=== PATIENT | female | born 1990 | race African-American/Black ===

== ENCOUNTER 2017-03-09 00:07 | Observation (INO) ==
[2017-03-09] MEDS ORDERED: SODIUM CHLORIDE 0.9% 1,000 ML IV STA (01:02)
[2017-03-09] MEDS ORDERED: HYDROmorphone 2 MG/1 ML VIAL IV STA (01:02)
[2017-03-09] MEDS ORDERED: KETOROLAC 30 MG/1 ML VIAL IV STA (01:02)
[2017-03-09] MEDS ORDERED: ONDANSETRON 4 MG/2 ML VIAL IV STA (01:02)
--- NOTE | 2017-03-09 01:07 | Emergency Department Note ---
Arrival - Arrival ED Nursing Triage Note: patient c/o pain that she cannot describe in the left abd with n/v Mode of Arrival: Ambulatory - History of Present Illness Date of Last Menstrual Period: hyster <Charbel Azar - Last Filed: 03/09/17 01:05> <Pascual Ryan - Last Filed: 03/09/17 05:01> - Arrival Chief Complaint: Abdominal / Flank Pain Stated Complaint: pain in abd Time Seen by Provider: 03/09/17 00:56 - History of Present Illness HPI Narrative: History as above. The patient complains of severe left flank pain since yesterday. She describes the pain as "a hurt" which is better when she presses on it. The pain is constant. She denies any fever. She had nausea and vomited several times. The patient had a hysterectomy in the past. She denies any dysuria. The rest review of systems was reviewed and it was negative. (Charbel Azar) Allergies/Adverse Reactions: Allergies Allergy/AdvReac Type Severity Reaction Status Date / Time No Known Allergies Allergy Verified 12/26/16 15:29 Review of System <Charbel Azar - Last Filed: 03/09/17 01:05> <Pascual Ryan - Last Filed: 03/09/17 05:01> - Review of System Review of Systems: I reviewed the rest review of systems unable as negative. (Charbel Azar) Medical,Surgical,& Family Hx - Medical History Psychological: History of: Depression - Surgical History Reproductive Surgeries: Surgical HX of;: Hysterectomy - Social History Smoking Status: Current every day smoker Frequency of Alcohol Use: None Type of Drug Use: None <Charbel Azar - Last Filed: 03/09/17 01:05> Exam <Charbel Azar - Last Filed: 03/09/17 01:05> <Pascual Ryan - Last Filed: 03/09/17 05:01> Physical Examination: The patient is in severe distress HEENT: [Anicteric], [normocephalic], [extraocular muscles intact], [pupils equal round and reactive to light] Neck: [Supple], [no JVD], [trachea in the midline] CV: Regular rate and rhythm, no murmurs or gallops Lungs: [Clear to auscultation and percussion], [bilateral breath sounds] Abdomen:[Nondistended], [mild tenderness in the left lower quadrant, no guarding or rebound] Extremities:[ No edema], [clubbing or cyanosis] Neurological exam: [Alert and oriented 3], [cranial nerves II through XII grossly intact], [nonfocal] Skin: [Warm and dry], [no rash] (Charbel Azar) Vital Signs: Vital Signs Temperature 96.9 F L 03/09/17 00:08 Pulse Rate 88 03/09/17 00:08 Respiratory Rate 20 03/09/17 00:08 Blood Pressure 170/115 03/09/17 00:08 O2 Sat by Pulse Oximetry 97 03/09/17 00:08 Course <Charbel Azar - Last Filed: 03/09/17 01:05> - Consultations Time: 05:00 <Pascual Ryan - Last Filed: 03/09/17 05:01> - Consultations Consultation #1: Dr. Dickson was notified she will admit patient for ovarian torsion (Pascual Ryan) Results - Labs CBC & BMP: 03/09/17 00:38 03/09/17 00:38 - Diagnostic Findings Procedure: Ultrasound: image reviewed by me, report reviewed by me (Possible ovarian torsion) <Pascual Ryan - Last Filed: 03/09/17 05:01> Disposition <Charbel Azar - Last Filed: 03/09/17 01:05> Case discussed with: patient, patient's family Time of Disposition: 05:01 <Pascual Ryan - Last Filed: 03/09/17 05:01> Clinical Impression: Abdominal pain, Pelvic pain, Torsion of left ovary and ovarian pedicle Disposition: Still a Patient Condition: Stable
[2017-03-09 01:13] LABS: Basophils # 0.1 10*3/uL (0.0-0.2); Basophils % 0.5 % (0.0-0.8); Eosinophils # 0.1 10*3/uL (0.0-0.87); Eosinophils % 0.7 % (0.00-10.9); Hematocrit 40.3 VOL% (35.7-47.0); Immature Granulocytes % 0.2 %; Immature Granulocytes Absolute 0.02 #; Lymphocytes # 4.7 10*3/uL (1.4-4.0); Lymphocytes % 42.1 % (21.3-54.2); Mean Corpuscular HGB Conc 34.7 GM/DL (32-36); Mean Corpuscular Hemoglobin 33 PG (27-34); Mean Corpuscular Volume 93.5 FL (87-102); Mean Platelet Volume 12.1 FL (9.6-12.0); Monocytes % 8.6 % (1.7-12.7); Neutrophils # 5.3 10*3/uL (1.4-7.4); Neutrophils % 47.9 % (38.7-73.9); Platelet Count 195 T/CUMM (130-400); Red Blood Count 4.31 MC/CUMM (3.8-5.5); Red Cell Distribution Width 12.8 % (9.3-17.3); White Blood Count 11.1 T/CUMM (4-12)
[2017-03-09] MEDS ORDERED: ONDANSETRON 4 MG/2 ML VIAL ONE ×2 (01:13→11:48)
[2017-03-09] MEDS ORDERED: HYDROmorphone 2 MG/1 ML VIAL ONE (01:13)
[2017-03-09] MEDS ORDERED: KETOROLAC 30 MG/1 ML VIAL ONE ×2 (01:13→11:48)
[2017-03-09 02:02] LABS: Alanine Aminotransferase 21 U/L (13-56); Alkaline Phosphatase 95 U/L (45-117); Amylase 59 U/L (25-115); Aspartate Amino Transferase 14 U/L (0-37); Bilirubin,Total < 0.39 MG/DL (0.2-1.0); Blood Urea Nitrogen 6 MG/DL (7-18); Calcium 9.2 MG/DL (8.5-10.1); Glucose 93 MG/DL (74-106); Osmolality,Calculated 276.4 MOS/KG (273-304); Potassium 3.8 MMOL/L (3.5-5.1); Sodium 140 MMOL/L (136-145); Total Protein 7.4 G/DL (6.4-8.3)
[2017-03-09] MEDS ORDERED: methylPREDNISolone SOD SUC 125 MG/2 ML VIAL ONE (02:02)
[2017-03-09] MEDS ORDERED: diphenhydrAMINE 50 MG/1 ML VIAL ONE (02:02)
[2017-03-09] MEDS ORDERED: FAMOTIDINE 20 MG/2 ML VIAL IV ONE (02:03)
[2017-03-09] MEDS ORDERED: methylPREDNISolone SOD SUC 125 MG/2 ML VIAL IV STA (02:10)
[2017-03-09] MEDS ORDERED: diphenhydrAMINE 50 MG/1 ML VIAL IV STA (02:10)
[2017-03-09] MEDS ORDERED: FAMOTIDINE 20 MG/2 ML VIAL IV STA (02:10)
[2017-03-09 02:11] LABS: Apearance,Urine CLEAR (Clear); Bilirubin,Urine Negative (Negative); Blood, Urine Negative (Negative); Glucose,Urine (UA) Negative (Negative); Ketones,Urine Negative (Negative); Mucus,Urine Occasional /LPF (Occasional); Nitrite,Urine Negative (Negative); Protein,Urine Negative; Squamous Epithelial Cell,Urine Occasional /HPF (0-10); Urine Color Straw (Yellow); Urine Specific Gravity 1.011 (1.001-1.035); Urine Urobilinogen < 2.0 EU/DL (0.2-1.0)
[2017-03-09] MEDS ORDERED: ceFAZolin 2,000 MG in SODIUM CHLORIDE 0.9% 100 ML IV STA (05:01)
[2017-03-09] MEDS ORDERED: ceFAZolin 1,000 MG VIAL ONE (05:09)
[2017-03-09] MEDS ORDERED: SODIUM CHLORIDE 0.9% 100 ML IV ONE (05:09)
[2017-03-09] MEDS ORDERED: SODIUM CHLORIDE 0.9% 1,000 ML IV SCH (06:37)
[2017-03-09] MEDS ORDERED: ACETAMINOPHEN 325 MG TABLET PO PRN ×2 (06:37→11:01)
[2017-03-09] MEDS ORDERED: ONDANSETRON 4 MG/2 ML VIAL IV PRN ×2 (06:37→11:01)
[2017-03-09] MEDS ORDERED: IBUPROFEN 800 MG TABLET PO PRN ×2 (06:37→11:01)
[2017-03-09] MEDS ORDERED: MAGNESIUM HYDROXIDE SUSP 30 ML UDCUP PO PRN ×2 (06:37→11:01)
[2017-03-09] MEDS ORDERED: MORPHINE 2 MG/1 ML SYRINGE IV PRN (06:37)
[2017-03-09] MEDS ORDERED: MEPERIDINE 25 MG/1 ML VIAL IV ONE (06:45)
[2017-03-09] MEDS ORDERED: ONDANSETRON 4 MG/2 ML VIAL IV ONE (06:46)
--- NOTE | 2017-03-09 06:54 | OB/GYN History & Physical ---
History of Present Illness Chief complaint: LLQ pain since 03/06/17. History of present illness: Ms. Marc is a 26 year old female presented to ER about 11 pm with LLQ since Sunday, worst pain she's ever had. Took Sunday off work with some improvement with supine position most of the day. 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 Evaluation with evidence of torsed left ovary with no flow to this area and 5 cm complex cyst. Pt is S/P Emergency Hysterectomy at [facility] 05/2016 due to hemorrhage at C/S which was done at 37 wks for placenta previa. Pt received 4 units pRBCs at that time. BRCA of Robotic Oophorectomy, surgery as indicated, possible open discussed with pt in great detail. She voices understanding and wishes to proceed. Allergies Allergy/AdvReac Type Severity Reaction Status Date / Time Hydromorphone [From Dilaudid] Allergy RASH Verified 03/09/17 06:45 Medical,Surgical,& Family Hx - Medical History Psychological: History of: Depression - Surgical History Reproductive Surgeries: Surgical HX of;: Hysterectomy - Social History Smoking Status: Current every day smoker Frequency of Alcohol Use: None Type of Drug Use: None Exam [employer] - Constitutional Vitals: Vital Signs Temp Pulse Resp BP Pulse Ox 03/09/17 00:08 96.9 F L 88 20 170/115 97 General appearance: mild distress, over weight - Head Head exam: Present: normal inspection, normocephalic - Eye Eye exam: Present: EOMI - Respiratory Respiratory exam: Present: clear to auscultation bilaterally - Cardiovascular Cardiovascular exam: Present: regular rate and rhythm - GI/Abdominal GI/Abdominal exam: Present: tenderness, soft - Extremities Exam Extremities exam: Present: normal inspection - Neurological Exam Neurological exam: Present: alert, oriented X3 - Psychiatric Psychiatric exam: Present: normal affect, normal mood - Skin Skin exam: Present: normal color, warm Assessment and Plan (1) Torsion of ovarian pedicle Status: Acute Assessment and plan: Robotic oophorectomy, surgery as indicated, possible open planned. BRCA discussed with pt in great detail. She voices understanding and wishes to proceed. Current Visit: Yes (2) Left lower quadrant pain Status: Acute Current Visit: Yes Results - Labs CBC & BMP: 03/09/17 00:38 03/09/17 00:38 Lab Results: I have reviewed the past 24 hour labs
[2017-03-09] MEDS ORDERED: MEPERIDINE 25 MG/1 ML VIAL ONE ×2 (06:55→13:47)
--- NOTE | 2017-03-09 06:59 | EKG Report ---
Stationary ECG Study [facility] Test Date: 03/09/2017 6:59:08 AM Pat Name: GALDINO ZENDEJAS Department: Room: 155 Gender: F Maintenance Aide: AZUL : 1990 Requested by: Pascual Kwan Order Number: [id number] Reading MD: NATALEE NARVAEZ Intervals [place] Rate: 67 P: 48 NE: 173 QRS: 86 QRSD: 98 T: 55 QT: 414 QTc: 429 Interpretive Statements SINUS RHYTHM Electronically Signed On 03-09-17 12:34:16 CDT by NATALEE NARVAEZ [email or web address]
[2017-03-09] MEDS ORDERED: LACTATED RINGERS 1,000 ML IV SCH ×2 (07:00→11:30)
--- NOTE | 2017-03-09 07:40 | CT Report ---
CT abdomen pelvis Indication: Abdominal pain Comparison: None available Technique: Axial CT imaging of the abdomen and pelvis is performed without contrast. Findings: Cardiac and lung bases are within normal limits CT abdomen: The liver spleen pancreas and adrenal glands are normal in size and density. No evidence of focal lesion is demonstrated in these solid organs. Kidneys are normal in size and density. No evidence of hydronephrosis or nephrolithiasis is seen. The bowel caliber is normal and no wall thickening or adjacent inflammatory change is seen. No evidence of free fluid or free air is present. Appendix appears normal. CT pelvis: The bowel and bladder appear within normal limits. The uterus and ovaries not clearly seen. In the left side of the pelvis there is a 4.59 x 4.9 cm area of increased density. Impression: Left pelvic area of increased density, could indicate ovarian mass or cystic lesion. Ultrasound may be useful for further evaluation. This CT exam was performed using one or more the following dose reduction techniques: Automated exposure control, adjustment of the MA and/or KV according to patient size, or use of iterative reconstruction technique. PROCEDURE INTERPRETED AT [facility] DEPARTMENT OF RADIOLOGY Final Report Signed by: Dr. Arnaldo Álvarez
--- NOTE | 2017-03-09 07:52 | Ultrasound Report ---
Pelvic ultrasound Indication: Pelvic pain Findings: The uterus is been removed. The right ovary length is 3.2 cm. Left ovary is enlarged with absence of Doppler flow. The patient was tender over this area. The left ovary length is 5.4 cm. No other focal abnormality seen. No free fluid is identified Impression: Enlarged left ovary without Doppler flow, likely torsion. PROCEDURE INTERPRETED AT [facility] DEPARTMENT OF RADIOLOGY Final Report Signed by: Dr. Arnaldo lÁvarez
[2017-03-09] MEDS ORDERED: PANTOPRAZOLE 40 MG VIAL IV SCH (09:00)
[2017-03-09] MEDS ORDERED: TISSUE ADHESIVE 1 EACH APPLICATOR TOP ONE (10:27)
--- NOTE | 2017-03-09 10:58 | Operative Note ---
Date of procedure: 03/09/17 Pre-op diagnosis: Left ovarian torsion Post-op diagnosis: same (+ path pending) Procedure: Robotic Extensive Lysis of Adhesions; Left Partial Salpingo-oophorectomy After informed consent was obtained the patient was taken to the OR where she is placed in supine position. Gen. LMA anesthesia was then administered by members anesthesia Department. The patient was then sterilely prepped and draped in usual customary fashion. A Holliday catheter had been placed to bedside drainage. An 8 mm incision was made in the supraumbilical region. Veress needle was passed through the incision without difficulty. Placement was assured by the hanging drop technique. Approximately 3 L of carbon dioxide gas was used to insufflate the abdomen. The Veress needle was then removed. The 8 mm trocar and sheath were placed without difficulty. Laparoscope was placed and pelvic contents were visualized. Incisions were made in the lateral areas of the upper abdomen. 8 mm trochars were passed through these incisions under direct visualization without difficulty. A 12 mm port was passed under direct visualization in the left upper quadrant. The da Harmeet was then attached to the ports in the typical fashion. I then turned my attention to the da Harmeet console. The uterus was absent consistent with pt's surgical history. There were omental adhesions covering the pelvis. The left ovary was carefully dissected out of the culdesac with tissue planes easily defined after initial careful dissection. Once the left adnexa was mobilized it was found to be markedly enlarged. The ovarian surface was unintentionally disrupted during manipulation and a large amount of dark reddish brown clots were suctioned from the ovary. The IP ligament was identified, cauterized and cut with the Vessel Sealer. The ovary was carefully dissected off the left pelvic side wall. As it was more exposed the fimbriated end of the Fallopian tube was noted but no other tubal structures were identified. Despite careful dissection there may be some remnants of ovarian tissue left due to the extensive adhesions encountered. The right ovary was equally obscured with pelvic adhesions. It was dissected out and no abnormalities were noted of the right adnexa. The left tube and ovary were then brought out of the abdomen with the Endobag and the specimen was sent to pathology. Irrigation was performed. No active bleeding was noted of the dissection site but due to oozing of the surfaces from adhesiolysis I decided to use Tisseal to achieve complete hemostasis. Attention was drawn again to the abdomen and the ports were removed. The wounds were closed with interrupted stitches of 4 Vicryl with good approximation and hemostasis. The sites were cleansed and dressed in the customary fashion. The patient tolerated the procedure well and was transferred to recovery in stable condition. (((((The left tube and ovary were very mobile with no specific pathology identified. There was a red lesion and a brown lesion of left tube suggesting possible endometriosis. No other suspicious lesions were identified in the pelvis. Careful inspection of the anterior posterior cul-de-sacs was without evidence of pathology. There was noted to be a large peritoneal cyst in the cul de sac. This was removed and discarded. The upper abdomen appeared to be without evidence pathology. The cecum and appendix appeared healthy . A third incision was made through another old cicatrix in the left lower quadrant and a 12 mm trocar was passed under direct visualization. The bipolar cautery instrument was used to cauterize then cut the left IP ligament as close to the ovary as possible. The endobag was then used to bring the ovary and tube out of the abdomen. This tissue was sent to pathology. The endoclose was used to place 0-vicryl suture through fascia on each side of the 12 mm incision. This was done under direct visualization with good fascial closure assured.))))))) Irrigation was performed. The instruments were then removed, the gas was allowed to escape and the incisions were repaired with interrupted stitches of 4 -0 Vicryl suture with good approximation and hemostasis. A running subcuticular stitch of 4-0 vicryl was placed in the 12 mm site. The wounds were sterilely cleansed and dressed. Pt tolerated the procedure well and was transferred to recovery in stable condition. Anesthesia: GETA Surgeon / Physician: Kristen Dickson Estimated blood loss: other (25 mL) Specimens: other (Left ovary and portion of tube sent to path) Condition: stable Disposition: PACU Results - Labs CBC & BMP: 03/10/17 05:02 03/10/17 05:02 Discharge Plan - Discharge Data Disposition: Disch To Home/Self Care - Discharge Medications New Ibuprofen Tab [Motrin Tab] 800 mg PO Q8H PRN #30 tablet PRN Reason: Pain Moderate (4-7) oxyCODONE/ACETAMINOPHEN 5-325 [Percocet 5-325] 1 tablet PO Q4H PRN #30 tablet PRN Reason: Pain Severe (8-10) No Action Methyldopa [Aldomet] 250 mg PO TID valACYclovir [Valtrex] 500 mg PO BID hydroCHLOROthiazide [Hydrochlorothiazide] 25 mg PO DAILY Fluoxetine HCl [Prozac] 10 mg PO DAILY Oxybutynin Xl [Ditropan Xl] 10 mg PO DAILY Ibuprofen Tab [Motrin Tab] 800 mg PO TID - Follow Up or Referral Follow Up: Kristen Dickson DO [Physician] - 1 Week (Appt with Dr. Dickson Mar 14 @1pm at her office. ) - Forms/Instructions Instructions: Ibuprofen (By mouth), Oxycodone/Acetaminophen (By mouth), Surgical Site Infections (GEN), Laparoscopic Oophorectomy (DC)
[2017-03-09] MEDS ORDERED: BISACODYL 10 MG SUPP RECTAL PRN (11:01)
[2017-03-09] MEDS ORDERED: BENZOCAINE/MENTHOL LOZENGE 18/BOX PO PRN (11:01)
[2017-03-09] MEDS ORDERED: DOCUSATE SODIUM 100 MG CAPSULE PO PRN (11:01)
--- NOTE | 2017-03-09 11:01 | Discharge Summary ---
Hospital Course - Hospital Course Hospital Course: Pt underwent Robotic extensive lysis of adhesions, Left partial salpingo- oophorectomy without complication. She was transferred to in stable condition. She had excess pain of RUQ incision site and on exam was noted to have swelling at site s/w hematoma so skin glue was removed and attempts to express any blood were unsuccessful so sterile pressure dressing applied and abdominal binder was placed. She is doing well this morning and requesting dismissal. Diagnosis - Discharge Diagnosis (1) Torsion of ovarian pedicle Status: Acute (2) Left lower quadrant pain Status: Acute Specialty Discharge - Follow Up or Referrals Follow up with: Kristen Dickson DO [Physician] - Discharge Plan - Discharge Data Disposition: Disch To Home/Self Care Condition at Discharge: Stable Discharge Diet: regular diet Activity: other (pelvic rest x 2 wks) Hygiene: may shower Weight Bearing at Discharge: full weight bearing Driving: not until seen by doctor Contact your physician if you experience:: fever over 101, Difficulty voiding, Redness or swelling, Nausea/Vomiting, Shortness of breath, Bleeding, pain uncontrolled by pain medications - Discharge Medications New Ibuprofen Tab [Motrin Tab] 800 mg PO Q8H PRN #30 tablet PRN Reason: Pain Moderate (4-7) oxyCODONE/ACETAMINOPHEN 5-325 [Percocet 5-325] 1 tablet PO Q4H PRN #30 tablet PRN Reason: Pain Severe (8-10) No Action Methyldopa [Aldomet] 250 mg PO TID valACYclovir [Valtrex] 500 mg PO BID hydroCHLOROthiazide [Hydrochlorothiazide] 25 mg PO DAILY Fluoxetine HCl [Prozac] 10 mg PO DAILY Oxybutynin Xl [Ditropan Xl] 10 mg PO DAILY Ibuprofen Tab [Motrin Tab] 800 mg PO TID - Follow Up or Referral Follow Up: Kristen Dickson DO [Physician] - 1 Week - Forms/Instructions Instructions: Surgical Site Infections (GEN), Laparoscopic Oophorectomy (DC) Exam - Constitutional Vitals: Period Temp Pulse Resp BP Sys/Jones Pulse Ox Last 24 Hr 96.9 F-97.0 F 73-88 20-20 150-170/90-115 97-100 General appearance: normal weight, no acute distress - Head Head exam: Present: normal inspection, normocephalic - Eye Eye exam: Present: EOMI - Respiratory Respiratory exam: Present: clear to auscultation bilaterally - Cardiovascular Cardiovascular exam: Present: regular rate and rhythm - GI/Abdominal GI/Abdominal exam: Present: soft - Extremities Exam Extremities exam: Present: normal inspection - Neurological Exam Neurological exam: Present: alert, oriented X3 - Psychiatric Psychiatric exam: Present: normal affect, normal mood - Skin Skin exam: Present: normal color, warm Discharge Results Procedures and tests throughout hospitalization: Pending Orders 03/10/17 04:00 Comp Blood Count Auto Diff IN AM Comprehensive Metabolic Panel IN AM Prothrombin Time INR IN AM Labs on day of discharge: Labs from last 24 hours 03/09/17 03/09/17 03/09/17 00:38 00:38 00:38 WBC 11.1 RBC 4.31 Hgb 14.0 Hct 40.3 MCV 93.5 MCH 33 MCHC 34.7 RDW 12.8 Plt Count 195 MPV 12.1 H Neut % (Auto) 47.9 Lymph % (Auto) 42.1 [place] % (Auto) 8.6 Eos % (Auto) 0.7 Baso % (Auto) 0.5 Neut # (Auto) 5.3 Lymph # (Auto) 4.7 H [place] # (Auto) 1.0 H Eos # (Auto) 0.1 Baso # (Auto) 0.1 Immature Gran % 0.2 Nucleated RBC % 0.0 Immature Gran # 0.02 Nucleated RBCs # 0.00 Immature Plt Fraction 0.0 Sodium 140 Potassium 3.8 Chloride 107 Carbon Dioxide 27 Anion Gap 9.8 BUN 6 L Creatinine 0.80 GFR Calculation 146 BUN/Creatinine Ratio 7.00 Glucose 93 Calculated Osmolality 276.4 Calcium 9.2 Total Bilirubin < 0.39 AST 14 ALT 21 Alkaline Phosphatase 95 Total Protein 7.4 Albumin 4.0 Globulin 3.4 Albumin/Globulin Ratio 1.1 Amylase 59 Lipase 155.0 Urine Color Straw Urine Appearance Clear Urine pH 8.0 Ur Specific [place] 1.011 Urine Protein Negative Urine Glucose (UA) Negative Urine Ketones Negative Urine Blood Negative Urine Nitrate Negative Urine Bilirubin Negative Urine Urobilinogen < 2.0 H Urine Leukocytes Negative Ur Squamous Epith Cells Occasional Urine Mucus Occasional Ur Culture Indicated? Not indicated DS: Provider Date of admission: 03/09/17 05:01 Primary care physician: . No PCP Attending physician on admission: Kristen Dickson DO Discharging clinician: Kristen Dickson DO Expected date of discharge: 03/09/17
[2017-03-09] MEDS ORDERED: SEVOFLURANE 1 UNIT/15 MINUTE INH ONE (11:47)
[2017-03-09] MEDS ORDERED: PROPOFOL 200 MG/20 ML VIAL IV ONE (11:47)
[2017-03-09] MEDS ORDERED: MIDAZOLAM 2 MG/2 ML VIAL ONE (11:47)
[2017-03-09] MEDS ORDERED: SUFentanil 50 MCG/ML AMP ONE (11:47)
[2017-03-09] MEDS ORDERED: DEXAMETHASONE 10 MG/1 ML VIAL ONE (11:48)
[2017-03-09] MEDS ORDERED: GLYCOPYRROLATE 0.4 MG/2 ML VIAL ONE (11:48)
[2017-03-09] MEDS ORDERED: FLUMAZENIL 0.5 MG/5 ML VIAL IV ONE (11:48)
[2017-03-09] MEDS ORDERED: NEOSTIGMINE 10 MG/10 ML VIAL ONE (11:48)
[2017-03-09] MEDS ORDERED: ROCURONIUM 100 MG/10 ML VIAL IV ONE (11:49)
[2017-03-09] MEDS: KETOROLAC 30 MG/1 ML VIAL IV SCH ×2 (11:58→18:02)
[2017-03-09] MEDS: oxyCODONE/ACETAMINOPHEN 5-325 MG TABLET PO PRN (13:13)
[2017-03-09] MEDS ORDERED: MEPERIDINE 25 MG/1 ML VIAL IV PRN (13:42)
[2017-03-09] MEDS ORDERED: PROMETHAZINE 25 MG/1 ML VIAL IM PRN (14:54)
[2017-03-09] MEDS: MEPERIDINE 25 MG/1 ML VIAL IM PRN ×2 (16:24→21:41)
[2017-03-09] MEDS: DOCUSATE SODIUM 100 MG CAPSULE PO SCH (21:41)
[2017-03-10 05:17] LABS: Basophils % 0.1 % (0.0-0.8); Hematocrit 39.9 VOL% (35.7-47.0); Immature Granulocytes % 0.5 %; Immature Granulocytes Absolute 0.09 #; Lymphocytes # 2.2 10*3/uL (1.4-4.0); Lymphocytes % 12.9 % (21.3-54.2); Mean Corpuscular HGB Conc 35.1 GM/DL (32-36); Mean Corpuscular Hemoglobin 33 PG (27-34); Mean Corpuscular Volume 94.8 FL (87-102); Mean Platelet Volume 12.1 FL (9.6-12.0); Monocytes # 1.6 10*3/uL (0.11-0.8); Monocytes % 9.3 % (1.7-12.7); Neutrophils # 13.3 10*3/uL (1.4-7.4); Neutrophils % 77.2 % (38.7-73.9); Platelet Count 206 T/CUMM (130-400); Red Blood Count 4.21 MC/CUMM (3.8-5.5); Red Cell Distribution Width 13.2 % (9.3-17.3); White Blood Count 17.2 T/CUMM (4-12)
[2017-03-10 05:26] LABS: INR 1.1; PT Patient Result 11.2 SECS
[2017-03-10 05:49] LABS: Albumin 3.4 G/DL (3.4-5.0); Bilirubin,Total 0.7 MG/DL (0.2-1.0); Osmolality,Calculated 279.3 MOS/KG (273-304); Potassium 4.1 MMOL/L (3.5-5.1); Total Protein 6.6 G/DL (6.4-8.3)
[2017-03-10] MEDS: oxyCODONE/ACETAMINOPHEN 5-325 MG TABLET PO PRN (07:42)
[2017-03-10] MEDS: DOCUSATE SODIUM 100 MG CAPSULE PO SCH (08:33)
[2017-03-10 10:24] VITALS: BP 147/88
--- NOTE | 2017-03-12 13:35 | Pathology Report from [facility] ---
[facility] ACCESSION # : [id number] PATIENT NAME : Galdino Zendejas ORDERING DR : ALINA CAMPBELL DO CLINICAL HX: Pelvic pain POST-OP DX: Sasme SPECIMEN INFO: Left ovary (partial) GROSS DESCRIPTION: The specimen is received in formalin labeled with the patients name and consists of an aggregate of hemorrhagic ovarian tissue measuring 5.0 x 4.5 cm. Also seen is a possible fallopian tube segment measuring 2.2 x 0.7 cm. Political Science Chair sections submitted in cassettes A and B. DIAGNOSIS FOR GALDINO ZENDEJAS: LEFT OVARY PARTIAL, OOPHORECTOMY: Hemorrhagic luteal cyst and stromal hemorrhage; fallopian tube tissue. COLLECTED DATE: 03/09/2017 [facility] REPORT DATE: 03/12/2017 ELECTRONICALLY SIGNED BY: Linda Benítez M.D. 03/12/2017 - 9:59:25 [facility]
== END 2017-03-10 10:05 | disposition home or self-care (01) ==
LOC: N.ED 00:07 → N.EDINP 05:01 → INTOOBSV 05:01 → N.OB 06:04
PROVIDERS: ADMIT Obstetrics & Gynecology; ATTEND Obstetrics & Gynecology

== ENCOUNTER 2017-03-24 14:22 | Observation (INO) ==
[2017-03-24] MEDS ORDERED: ONDANSETRON 4 MG/2 ML VIAL IV STA (14:47)
[2017-03-24] MEDS ORDERED: METOCLOPRAMIDE 10 MG/2 ML VIAL IV STA (14:47)
[2017-03-24] MEDS ORDERED: NALBUPHINE 10 MG/ML AMP IV ONE (14:50)
--- NOTE | 2017-03-24 14:54 | Emergency Department Note ---
Arrival - Arrival Chief Complaint: Urogenital - Female Stated Complaint: pain in side of stomach ED Nursing Triage Note: C/O Having right sided abd.pain that started last evening, states she had to have her left ovary removed on 03/09/17., states last evening her right side of the abdomen started hurting last evening, + nausea., + vomiting at time of triage., denies checking temp, + chills Mode of Arrival: Ambulatory Limitations: No Limitations Source: Patient Time Seen by Provider: 03/24/17 14:47 - History of Present Illness HPI Narrative: This 26-year-old black female presents with 20 hours of progressive right flank right lower quadrant pain associated with nausea, vomiting, and history of recent pelvic surgery 2 weeks ago for left ovarian torsion. The patient states this pain feels like her left ovary did several weeks ago when she had to have it removed because of torsion; however, she still has her appendix and gallbladder as well. She denies chills, fever, dysuria, urgency, frequency, or hematuria. She has had a relatively uncomplicated convalescence since her pelvic surgery until last p.m. Onset (ago): hour(s) (Patient presents 20 hours post onset of symptoms) Date of Last Menstrual Period: 9 monhts ago Allergies/Adverse Reactions: Allergies Allergy/AdvReac Type Severity Reaction Status Date / Time Hydromorphone [From Dilaudid] Allergy RASH Verified 03/24/17 14:33 Home Medications: Home Medications Medication Instructions Recorded Confirmed Type Fluoxetine HCl [Prozac] 10 mg PO QAM 03/09/17 03/24/17 History Ibuprofen Tab [Motrin Tab] 800 mg PO TID 03/09/17 03/24/17 History Methyldopa [Aldomet] 250 mg PO TID 03/09/17 03/24/17 History valACYclovir [Valtrex] 500 mg PO BID PRN 03/09/17 03/24/17 History Ibuprofen Tab [Motrin Tab] 800 mg PO Q8H PRN #30 tablet 03/10/17 03/24/17 Rx oxyCODONE/ACETAMINOPHEN 5-325 1 tablet PO Q4H PRN #30 tablet 03/10/17 03/24/17 Rx [Percocet 5-325] Review of System - Review of System 12 point system: reviewed and no additional remarkable complaints except as stated - Review of System Constitutional: Present: as per HPI Gastrointestinal: Present: as per HPI Genitourinary female: Present: as per HPI Medical,Surgical,& Family Hx - Medical History Cardio: History of: Hypertension (Gest HTN vs Chronic HTN?) No history of: Aneurysm, Cardiac Dysrhythmia, Cerebrovascular Disease, Congenital Heart Disease, CHF, CAD, ND, Pacemaker, PVD, Valvular Heart Disease, Cardiovascular Problems Psychological: History of: Anxiety Disorders, Depression, Previous Suicide Attempt (2014 ETOH ingestion, stomach pumped) No history of: ADHD, Behavior Problems, Bipolar Disorder, Psychiatric/ Substance Abuse Tx, Schizophrenia, Violent Behavior, Psychiatric Problems Neurology: No history of: Brain Aneurysm, Cerebral Hemorrhage, Cerebrovascular Accident , Cerebral Palsy, Dementia, Migraine, Multiple Sclerosis, Parkinson's Disease, Peripheral Neuropathy, Seizures, TIA, Vertigo, Neurologocal Cancer HEENT: No history of: Ear Problem, Eye Problem, Dental Problems, Glaucoma, Oral Cancer, HEENT Problems Endocrine: No history of: Adrenal Disease, Diabetes Mellitus (IDDM), Diabetes Mellitus ( NIDDM), Dyslipidemia, Thyroid Disorder, Endocrine Cancer, Endocrine Problems Rheumatology: No history of;: Fibromyalgia, Gout, Myasthenia Gravis, Psoriasis, Rheumatoid Arthritis, Sjogrens, Systemic Lupus Erythematosus, Rheumatological Problems Respiratory: No history of: Asthma, Bronchitis, COPD, Intubation, Obstructive Sleep Apnea , Pulmonary Embolism, Pulmonary Hypertension, Pneumonia, Lung Cancer, Respiratory Problems Renal: No history of: Renal (Kidney) Cancer, Dialysis, Renal Failure, Renal Problems Genitourinary: No history of: Bladder Problem, Kidney Stones, Recurring Urinary Tract Infections, Genitourinary Cancer, Problems Gastrointestinal: No history of: Bowel Obstruction, Clostridium Difficile, Crohn's Disease, Diverticulitis/ Diverticulosis, Esophageal Varices, GERD, Gastrointestinal Bleed , Hemorrhoids, Hematochezia, Hepatitis, Liver Problems, Pancreatitis, Polyps, Ulcerative Colitis, Gastrointestinal Cancer, GI Problems Musculoskeletal: No history of: Amputation, Back/Neck Problems, Degenerative Disk Disease, Herniated Disk, Osteoporosis, Musculoskeletal Cancer, Musculoskeletal Problems Hematology: History of: Anemia No history of: Blood Transfusion Reaction, Bleeding Problems, Clotting Problems, Sickle Cell Disease, Hematologic Cancer, Blood Disorders Reproductive: No history of: Abnormal Pap Smear Other: No history of: Anesthesia Reactions, Anaphylaxis, Cancer, Eczema, HIV, Malignant Hyperthermia, MRSA, Vancomycin-Resistant Enterococci, Skin Problems, Miscellaneous Medical Problems - Surgical History Cardiac Surgeries: Patient Denies: Femoral-Popliteal Bypass Graft, Cardiac Catheterization, Cardiac Surgery, Carotid Endarterectomy, Internal Defibrillator, Vascular Access Devices Thoracic Surgeries: Patient denies;: Kidney (Renal Surgery), Lithotripsy, Nephrectomy, Organ Transplant, Lobectomy Neurologic Surgeries: Patient denies: Brain Aneurysm, Cerebral Hemorrhage, Neurologic Surgery HEENT Surgeries: Surgical HX of: Tonsilectomy & Adenoidectomy Patient denies: Carotid Endarterectomy, Eye Surgery, Thyroid Surgery Abdominal Surgeries: Patient denies: Abdominal Surgery, Appendectomy, Cholecystectomy, Colonoscopy , Gastric Bypass Surgery, EGD, Hernia Repair, Splenectomy Reproductive Surgeries: Surgical HX of;: Section (c section x2), Gynecologic Surgery, Hysterectomy Patient denies;: Breast Surgery, Cystoscopy, Dilation and Curettage, Genitourinary Surgery, Tubal Ligation Orthopedic Surgeries: Patient denies;: Implanted Devices, Orthopedic Surgery, Spinal Surgery, Total Hip Replacement, Total Knee Replacement - Family History Family History: Reports;: Family Cancer (Dad-renal dx), Family Diabetes ( Paternal and maternal grandparents), Family Hypertension (Mom and Dad) Denies;: Family Anesthesia Reaction, Family Heart Disease, Family Psychiatric Problems, Family Stroke - Social History Smoking Status: Current every day smoker Frequency of Alcohol Use: None Type of Drug Use: None Exam Physical Examination: GENERAL: Obese black female writhing on the gurney from pain HEENT: Normocephalic. No trauma. Moist mucous membranes. EOMI. PERRLA. ENT NML NECK: Supple. No adenopathy. CARDIAC: Regular. No murmurs. Heart rate 77 CHEST: Clear to auscultation. No respiratory distress. O2 sat 99% ABDOMEN: Soft. Tender right CVA and right lower quadrant but exquisitely tender over the suprapubic area. Hypoactive bowel sounds. Healed stab wounds from surgery in the last month. EXTREMITIES: No trauma. Normal ROM. No pedal edema. SKIN: No diaphoresis. No rash. NEURO: Alert. Neuro intact no focal deficits. Vital Signs: Vital Signs Temperature 97.2 F L 03/24/17 14:48 Pulse Rate 69 03/24/17 16:30 Respiratory Rate 22 03/24/17 16:30 Blood Pressure 183/110 03/24/17 16:30 O2 Sat by Pulse Oximetry 100 08/26/17 16:30 Course - Reevaluation(s) Reevaluation #1: Informed the patient that once again she has yet another torsion, this time of the right ovary. - Consultations Consultation #1: Discussed with Dr. Chatterjee, COLLARETTE SEPARATOR, who will evaluate the patient further as well as operative intervention. Results - Labs CBC & BMP: 03/24/17 14:44 03/24/17 14:44 Labs: I have reviewed the laboratory and noted its normality. - Diagnostic Findings Procedure: Abdominal x-ray: image reviewed by me, report reviewed by me ( Diffuse colonic gas and feces consistent with fecal stasis but no acute changes. ), Ultrasound: image reviewed by me, report reviewed by me (Right ovarian torsion) Disposition Clinical Impression: Right ovarian torsion, Constipation Case discussed with: patient Disposition: Still a Patient Condition: Guarded Time of Disposition: 17:00
[2017-03-24 15:02] LABS: Apearance,Urine CLEAR (Clear); Bilirubin,Urine Negative (Negative); Blood, Urine Negative (Negative); Glucose,Urine (UA) Negative (Negative); Ketones,Urine Negative (Negative); Nitrite,Urine Negative (Negative); Protein,Urine Negative; Squamous Epithelial Cell,Urine Occasional /HPF (0-10); Urine Color Straw (Yellow); Urine Specific Gravity 1.003 (1.001-1.035); Urine Urobilinogen < 2.0 EU/DL (0.2-1.0)
[2017-03-24 15:09] LABS: Basophils # 0.1 10*3/uL (0.0-0.2); Eosinophils # 0.5 10*3/uL (0.0-0.87); Hematocrit 37.9 VOL% (35.7-47.0); Hemoglobin 13.2 GM/DL (12.0-16.0); Immature Granulocytes % 0.3 %; Immature Granulocytes Absolute 0.03 #; Lymphocytes # 4.2 10*3/uL (1.4-4.0); Lymphocytes % 37.2 % (21.3-54.2); Mean Corpuscular HGB Conc 34.8 GM/DL (32-36); Mean Corpuscular Hemoglobin 33 PG (27-34); Mean Corpuscular Volume 93.8 FL (87-102); Mean Platelet Volume 11.5 FL (9.6-12.0); Monocytes # 0.9 10*3/uL (0.11-0.8); Monocytes % 7.7 % (1.7-12.7); Neutrophils # 5.6 10*3/uL (1.4-7.4); Neutrophils % 49.8 % (38.7-73.9); Platelet Count 214 T/CUMM (130-400); Red Blood Count 4.04 MC/CUMM (3.8-5.5); Red Cell Distribution Width 12.8 % (9.3-17.3); White Blood Count 11.2 T/CUMM (4-12)
[2017-03-24] MEDS ORDERED: METOCLOPRAMIDE 10 MG/2 ML VIAL ONE (15:09)
[2017-03-24] MEDS ORDERED: ONDANSETRON 4 MG/2 ML VIAL ONE ×2 (15:09→19:05)
[2017-03-24] MEDS ORDERED: MEPERIDINE 25 MG/1 ML VIAL ONE ×4 (15:09→21:20)
[2017-03-24] MEDS ORDERED: MEPERIDINE 25 MG/1 ML VIAL IV STA ×3 (15:09→16:37)
[2017-03-24 15:26] LABS: PT Patient Result 10.2 SECS; Partial Thromboplastin Time 32.7 SECS (0-40)
[2017-03-24 15:29] LABS: Alanine Aminotransferase 25 U/L (13-56); Albumin 3.8 G/DL (3.4-5.0); Alkaline Phosphatase 95 U/L (45-117); Aspartate Amino Transferase 15 U/L (0-37); Bilirubin,Total < 0.39 MG/DL (0.2-1.0); Blood Urea Nitrogen 7 MG/DL (7-18); Calcium 8.7 MG/DL (8.5-10.1); Glucose 81 MG/DL (74-106); Osmolality,Calculated 275.4 MOS/KG (273-304); Potassium 3.9 MMOL/L (3.5-5.1); Sodium 140 MMOL/L (136-145); Total Protein 7.7 G/DL (6.4-8.3)
--- NOTE | 2017-03-24 16:12 | XRay Report ---
Exam: XR abdomen 2V Date: 03/24/2017 2:47 PM Indication: Pain Comparison: 09/06/2014 Technical: 2 view supine and erect Findings: Borderline cardiac enlargement on the supine exam No obvious infiltrates or effusions. The liver and spleen shadow are intact the renal shadows are not well seen. Nonspecific GI pattern is present. The bony structures are unremarkable. No obvious pneumoperitoneum. Impression: 1. No acute intra-abdominal pathology clearly demonstrated PROCEDURE INTERPRETED AT [facility] DEPARTMENT OF RADIOLOGY Final Report Signed by: Dr. Emanuel Reid
--- NOTE | 2017-03-24 16:33 | Ultrasound Report ---
Exam: US transabdominal TV pelvis Date: 03/24/2017 2:48 PM Comparison: None Indication: Question ovarian torsion right lower quadrant pain Technical transabdominal and transvaginal imaging utilized to visualize structures. Findings: 03/09/2017 Uterus. Surgically absent Endometrial Thickness:In/a Right ovary: 4.5 x 3 x 3.8 cm . There is no obvious color flow suggests of ovarian torsion. Left ovary. Prior left oophorectomy Free fluid: None Bladder: Unremarkable Impression: 1. Prior left oophorectomy and hysterectomy 2. Right ovarian torsion suspected. Critical test report called to Dr. Max Ultrasound images were stored and captured PROCEDURE INTERPRETED AT [facility] DEPARTMENT OF RADIOLOGY Final Report Signed by: Dr. Emanuel Reid
--- NOTE | 2017-03-24 18:09 | OB/GYN History & Physical ---
History of Present Illness Chief complaint: RLQ pelvic pain, flank described as "like when my left ovary twisted" History of present illness: Ms. Marc is a 26 year old female who had undergone an emergency laparoscopic removal of her left tube and ovary following a torsion earlier this month. She has apparently been recovering well until she began having pain approximately 20 hours ago which has become progressively worse. She has been seen in the emergency room and has had an ultrasound which is suggestive of torsion of her right tube and ovary due to absence of apparent blood flow. Home Medications Medication Instructions Recorded Confirmed Type Fluoxetine HCl [Prozac] 10 mg PO QAM 03/09/17 03/24/17 History Ibuprofen Tab [Motrin Tab] 800 mg PO TID 03/09/17 03/24/17 History Methyldopa [Aldomet] 250 mg PO TID 03/09/17 03/24/17 History valACYclovir [Valtrex] 500 mg PO BID PRN 03/09/17 03/24/17 History Ibuprofen Tab [Motrin Tab] 800 mg PO Q8H PRN #30 tablet 03/10/17 03/24/17 Rx oxyCODONE/ACETAMINOPHEN 5-325 1 tablet PO Q4H PRN #30 tablet 03/10/17 03/24/17 Rx [Percocet 5-325] Allergies Allergy/AdvReac Type Severity Reaction Status Date / Time Hydromorphone [From Dilaudid] Allergy RASH Verified 03/24/17 14:33 - Constitutional Constitutional: Present: as per HPI - EENT Eyes: Present: as per HPI - Cardiovascular Cardiovascular: Present: as per HPI - Respiratory Respiratory: Present: as per HPI - Gastrointestinal Gastrointestinal: Present: as per HPI - Genitourinary Genitourinary: Present: other (Right lower quadrant and right flank pain reminiscent of recent left tubo-ovarian torsion with surgical removal) - Musculoskeletal Musculoskeletal: Present: as per HPI - Neurological Neurological: Present: as per HPI - Psychiatric Psychiatric: Present: as per HPI - Endocrine Endocrine: Present: as per HPI - Hematologic/Lymphatic Hematologic/Lymphatic: Present: as per HPI Medical,Surgical,& Family Hx - Medical History Cardio: History of: Hypertension (Gest HTN vs Chronic HTN?) No history of: Aneurysm, Cardiac Dysrhythmia, Cerebrovascular Disease, Congenital Heart Disease, CHF, CAD, PR, Pacemaker, PVD, Valvular Heart Disease, Cardiovascular Problems Psychological: History of: Anxiety Disorders, Depression, Previous Suicide Attempt (2014 ETOH ingestion, stomach pumped) No history of: ADHD, Behavior Problems, Bipolar Disorder, Psychiatric/ Substance Abuse Tx, Schizophrenia, Violent Behavior, Psychiatric Problems Neurology: No history of: Brain Aneurysm, Cerebral Hemorrhage, Cerebrovascular Accident , Cerebral Palsy, Dementia, Migraine, Multiple Sclerosis, Parkinson's Disease, Peripheral Neuropathy, Seizures, TIA, Vertigo, Neurologocal Cancer HEENT: No history of: Ear Problem, Eye Problem, Dental Problems, Glaucoma, Oral Cancer, HEENT Problems Endocrine: No history of: Adrenal Disease, Diabetes Mellitus (IDDM), Diabetes Mellitus ( NIDDM), Dyslipidemia, Thyroid Disorder, Endocrine Cancer, Endocrine Problems Rheumatology: No history of;: Fibromyalgia, Gout, Myasthenia Gravis, Psoriasis, Rheumatoid Arthritis, Sjogrens, Systemic Lupus Erythematosus, Rheumatological Problems Respiratory: No history of: Asthma, Bronchitis, COPD, Intubation, Obstructive Sleep Apnea , Pulmonary Embolism, Pulmonary Hypertension, Pneumonia, Lung Cancer, Respiratory Problems Renal: No history of: Renal (Kidney) Cancer, Dialysis, Renal Failure, Renal Problems Genitourinary: No history of: Bladder Problem, Kidney Stones, Recurring Urinary Tract Infections, Genitourinary Cancer, Problems Gastrointestinal: No history of: Bowel Obstruction, Clostridium Difficile, Crohn's Disease, Diverticulitis/ Diverticulosis, Esophageal Varices, GERD, Gastrointestinal Bleed , Hemorrhoids, Hematochezia, Hepatitis, Liver Problems, Pancreatitis, Polyps, Ulcerative Colitis, Gastrointestinal Cancer, GI Problems Musculoskeletal: No history of: Amputation, Back/Neck Problems, Degenerative Disk Disease, Herniated Disk, Osteoporosis, Musculoskeletal Cancer, Musculoskeletal Problems Hematology: History of: Anemia No history of: Blood Transfusion Reaction, Bleeding Problems, Clotting Problems, Sickle Cell Disease, Hematologic Cancer, Blood Disorders Reproductive: No history of: Abnormal Pap Smear Other: No history of: Anesthesia Reactions, Anaphylaxis, Cancer, Eczema, HIV, Malignant Hyperthermia, MRSA, Vancomycin-Resistant Enterococci, Skin Problems, Miscellaneous Medical Problems - Surgical History Cardiac Surgeries: Patient Denies: Femoral-Popliteal Bypass Graft, Cardiac Catheterization, Cardiac Surgery, Carotid Endarterectomy, Internal Defibrillator, Vascular Access Devices Thoracic Surgeries: Patient denies;: Kidney (Renal Surgery), Lithotripsy, Nephrectomy, Organ Transplant, Lobectomy Neurologic Surgeries: Patient denies: Brain Aneurysm, Cerebral Hemorrhage, Neurologic Surgery HEENT Surgeries: Surgical HX of: Tonsilectomy & Adenoidectomy Patient denies: Carotid Endarterectomy, Eye Surgery, Thyroid Surgery Abdominal Surgeries: Patient denies: Abdominal Surgery, Appendectomy, Cholecystectomy, Colonoscopy , Gastric Bypass Surgery, EGD, Hernia Repair, Splenectomy Reproductive Surgeries: Surgical HX of;: Section (c section x2), Gynecologic Surgery, Hysterectomy Patient denies;: Breast Surgery, Cystoscopy, Dilation and Curettage, Genitourinary Surgery, Tubal Ligation Orthopedic Surgeries: Patient denies;: Implanted Devices, Orthopedic Surgery, Spinal Surgery, Total Hip Replacement, Total Knee Replacement - Family History Family History: Reports;: Family Cancer (Dad-renal dx), Family Diabetes ( Paternal and maternal grandparents), Family Hypertension (Mom and Dad) Denies;: Family Anesthesia Reaction, Family Heart Disease, Family Psychiatric Problems, Family Stroke - Social History Smoking Status: Current every day smoker Frequency of Alcohol Use: None Type of Drug Use: None Exam [employer] - Constitutional Vitals: Vital Signs Temp Pulse Resp BP BP Pulse Ox 03/24/17 17:15 68 18 145/100 100 03/24/17 16:30 69 22 183/110 100 03/24/17 15:30 63 141/93 100 03/24/17 14:55 67 137/91 100 03/24/17 14:48 97.2 F L 77 16 195/115 03/24/17 14:29 97.2 F L 77 16 195/115 99 General appearance: mild distress - Head Head exam: Present: normal inspection - Neck Neck exam: Present: normal inspection - Respiratory Respiratory exam: Present: clear to auscultation bilaterally. Absent: accessory muscle use - GI/Abdominal GI/Abdominal exam: Present: guarding, tenderness (In the right lower quadrant) - Extremities Exam Extremities exam: Present: normal inspection - Neurological Exam Neurological exam: Present: alert, oriented X3 - Psychiatric Psychiatric exam: Present: normal affect, normal mood - Skin Skin exam: Present: warm, dry Assessment and Plan - Time spent with patient Time spent with patient: Less than 30 minutes (1) Torsion of right ovary and ovarian pedicle Status: Acute Current Visit: Yes (2) Torsion of ovarian pedicle Status: Acute Assessment and plan: No blood flow on ultrasound, highly suspicious for unfortunate torsion of remaining tube and ovary. Taking to OR for diagnostic laparoscopy with RSO if recurrent torsion confirmed. Situation described to patient and partner in ER and understand and accept. Preparations under way for surgery after adequate NPO Current Visit: No Results - Labs CBC & BMP: 03/24/17 14:44 03/24/17 14:44
[2017-03-24] MEDS ORDERED: PROPOFOL 200 MG/20 ML VIAL IV ONE (19:05)
[2017-03-24] MEDS ORDERED: ROCURONIUM 100 MG/10 ML VIAL IV ONE (19:05)
[2017-03-24] MEDS ORDERED: NEOSTIGMINE 10 MG/10 ML VIAL ONE ×2 (19:05→20:55)
[2017-03-24] MEDS ORDERED: KETOROLAC 30 MG/1 ML VIAL ONE (19:05)
[2017-03-24] MEDS ORDERED: LIDOCAINE 2% 5 ML VIAL ONE (19:05)
[2017-03-24] MEDS ORDERED: SUCCINYLCHOLINE 200 MG/10 ML VIAL ONE (19:05)
[2017-03-24] MEDS ORDERED: GLYCOPYRROLATE 0.4 MG/2 ML VIAL ONE (19:05)
[2017-03-24] MEDS ORDERED: DEXAMETHASONE 10 MG/1 ML VIAL ONE (19:05)
[2017-03-24] MEDS ORDERED: TISSUE ADHESIVE 1 EACH APPLICATOR TOP ONE (20:11)
--- NOTE | 2017-03-24 20:47 | Anesthesia Post-Op ---
Anesthesia Post OP - Post Ansesthetic Evaluation Patient seen in post op: Yes Resp: within normal limits CV: within normal limits Mental: within normal limits Temp: within normal limits [id number]: within normal limits Nausea and Vomiting: within normal limits Pain: within normal limits
[2017-03-24] MEDS ORDERED: DESFLURANE 1 UNIT/15 MINUTE INH ONE (20:54)
[2017-03-24] MEDS ORDERED: MIDAZOLAM 2 MG/2 ML VIAL ONE (20:54)
[2017-03-24] MEDS ORDERED: fentaNYL 100 MCG/2 ML VIAL ONE (20:55)
[2017-03-24] MEDS ORDERED: LACTATED RINGERS 2,000 ML IV ONE (20:55)
[2017-03-24] MEDS ORDERED: ACETAMINOPHEN 1,000 MG/100 ML VIAL IV ONE (20:55)
[2017-03-24 20:58] LABS: Apearance,Urine Slightly Hazy (Clear); Bilirubin,Urine Negative (Negative); Blood, Urine Negative (Negative); Glucose,Urine (UA) Negative (Negative); Hyaline Casts,Urine 1 /LPF (0-3); Ketones,Urine Negative (Negative); Mucus,Urine Occasional /LPF (Occasional); Nitrite,Urine Negative (Negative); Protein,Urine 100 MG/DL; RBC,Urine 3 /HPF (0-4); Squamous Epithelial Cell,Urine Occasional /HPF (0-10); Urine Color Yellow (Yellow); Urine Specific Gravity 1.021 (1.001-1.035); Urine Urobilinogen < 2.0 EU/DL (0.2-1.0); WBC,Urine 4 /HPF (0-6)
[2017-03-24] MEDS ORDERED: ONDANSETRON 4 MG/2 ML VIAL IV PRN ×2 (20:59→21:57)
[2017-03-24] MEDS ORDERED: MEPERIDINE 25 MG/1 ML VIAL IV PRN (20:59)
[2017-03-24] MEDS ORDERED: LACTATED RINGERS 1,000 ML IV SCH ×2 (21:00→21:30)
[2017-03-24] MEDS ORDERED: BISACODYL 10 MG SUPP RECTAL PRN (21:18)
[2017-03-24] MEDS ORDERED: ACETAMINOPHEN 325 MG TABLET PO PRN (21:18)
[2017-03-24] MEDS ORDERED: BENZOCAINE/MENTHOL LOZENGE 18/BOX PO PRN (21:18)
[2017-03-24] MEDS ORDERED: MORPHINE 10 MG/1 ML VIAL IM ONE (21:23)
[2017-03-24] MEDS ORDERED: DEXTROSE 5% LACTATED RINGERS 1,000 ML IV SCH (21:30)
--- NOTE | 2017-03-24 21:48 | Operative Note ---
Date of procedure: 03/24/17 Pre-op diagnosis: Right ovarian torsion Post-op diagnosis: other Procedure: Diagnostic laparoscopy followed by laparotomy with right salpingo-oophorectomy and extensive pelvic lysis of adhesions Patient was taken to the operating room and administered a general anesthetic and a Holliday catheter inserted into the bladder. She was placed in the dorsal lithotomy position in the periumbilical region grasped with towel clamps and elevated. An incision was made just below the umbilicus and a Verres needle introduced. A pneumoperitoneum was created with 3 L of carbon dioxide. The Veress needle was removed and a 10 mm laparoscope inserted through a clear trocar. Trocar was removed and the 10 mm laparoscope inserted the abdomen and pelvis visualized. There was extensive omental adhesions over the entire pelvis , completely obstructing the view of the previous surgical site on the left, and dense adhesions to the pelvic brim on the right noted that were not resectable through the laparoscope. The pneumoperitoneum was relieved and a Pfannenstiel incision made above and old hysterectomy scar. Dissection was carried downward to the anterior rectus sheath with extensive fascial scarring noted. The rectus muscle was divided in the midline the peritoneum elevated and entered sharply and extended vertically. Visual exploration was again attempted without the ability to see anything in the right adnexa. The adhesions were carefully palpated and all of the omentum dissected away from the pelvis. This allowed visualization of the right ovary confirming a 6 cm cyst extruding a well formed clot with a small amount of fresh abdominal blood noted. The adhesions appeared to be preventing any torsion of the ovarian ligament but I could not confirm pulsations by palpating the blood supply. Decision was made to completely remove the tube and ovary. Infundibulopelvic ligament was doubly clamped divided and ligated with 0 Vicryl suture. The mesosalpinx was serially ligated with 0 Vicryl suture following similar clampings. The ovarian ligament was likewise clamped and ligated when the top of the vaginal cuff was reached. All sites were inspected and no further bleeding noted. Pelvis was irrigated and all tapes and retractors removed. The rectus muscle was closed with running suture of 2-0 Vicryl. The anterior rectus sheath was closed with interrupted [id number] sutures of 0 Vicryl. The fat was irrigated and closed with a running stitch of 2-0 Vicryl. Skin was closed with a running subcuticular suture of 3-0 Vicryl on a Nick needle. The laparoscopy incisions were closed with subcuticular stitches of 2- 0 Vicryl. Dermabond was applied to all incisions and patient sent to recovery room in satisfactory condition. Holliday catheter draining clear urine during and following the procedure. Anesthesia: NOHELIAA Surgeon / Physician: Emanuel Chatterjee Estimated blood loss: other Specimens: other (Hemorrhagic right ovarian cyst rupture, extensive right adnexal adhesions) Results - Labs CBC & BMP: 03/24/17 14:44 03/24/17 14:44 Discharge Plan - Discharge Medications No Action Methyldopa [Aldomet] 250 mg PO TID valACYclovir [Valtrex] 500 mg PO BID PRN PRN Reason: Rash Fluoxetine HCl [Prozac] 10 mg PO QAM Ibuprofen Tab [Motrin Tab] 800 mg PO Q8H PRN #30 tablet PRN Reason: Pain Moderate (4-7) oxyCODONE/ACETAMINOPHEN 5-325 [Percocet 5-325] 1 tablet PO Q4H PRN #30 tablet PRN Reason: Pain Severe (8-10) Ibuprofen Tab [Motrin Tab] 800 mg PO TID - Follow Up or Referral - Forms/Instructions
[2017-03-24] MEDS ORDERED: hydrOXYzine HCL 25 MG/1 ML VIAL IM PRN (21:57)
[2017-03-24] MEDS ORDERED: diphenhydrAMINE 50 MG/1 ML VIAL IV PRN ×2 (21:57)
[2017-03-24] MEDS ORDERED: NALOXONE 0.4 MG/ML VIAL IV PRN (21:58)
[2017-03-24] MEDS ORDERED: MORPHINE 2 MG/1 ML SYRINGE IV ONE (22:06)
[2017-03-24] MEDS: MORPHINE PCA 30 MG/30 ML SYRINGE IV SCH (22:58)
[2017-03-24] MEDS: METHYLDOPA 250 MG TABLET PO SCH (23:03)
[2017-03-25] MEDS: SIMETHICONE CHEW 80 MG TABLET PO PRN (03:05)
[2017-03-25] MEDS: LACTATED RINGERS 1,000 ML IV SCH ×3 (03:09→19:38)
[2017-03-25 06:47] LABS: Basophils % 0.2 % (0.0-0.8); Hematocrit 35.2 VOL% (35.7-47.0); Hemoglobin 12.1 GM/DL (12.0-16.0); Immature Granulocytes % 0.6 %; Immature Granulocytes Absolute 0.09 #; Lymphocytes # 1.4 10*3/uL (1.4-4.0); Lymphocytes % 8.3 % (21.3-54.2); Mean Corpuscular HGB Conc 34.4 GM/DL (32-36); Mean Corpuscular Hemoglobin 33 PG (27-34); Mean Corpuscular Volume 95.7 FL (87-102); Mean Platelet Volume 11.8 FL (9.6-12.0); Monocytes % 6.4 % (1.7-12.7); Neutrophils # 13.8 10*3/uL (1.4-7.4); Neutrophils % 84.5 % (38.7-73.9); Platelet Count 243 T/CUMM (130-400); Red Blood Count 3.68 MC/CUMM (3.8-5.5); White Blood Count 16.4 T/CUMM (4-12)
[2017-03-25] MEDS: MORPHINE PCA 30 MG/30 ML SYRINGE IV SCH ×2 (08:09→16:14)
[2017-03-25] MEDS: IBUPROFEN 800 MG TABLET PO PRN (08:45)
[2017-03-25] MEDS ORDERED: SIMETHICONE CHEW 125 MG TABLET PO SCH (09:00)
[2017-03-25] MEDS: ONDANSETRON 4 MG/2 ML VIAL IV PRN ×2 (10:39→16:15)
--- NOTE | 2017-03-25 12:30 | Anesthesia Post-Op ---
Anesthesia Post OP - Post Ansesthetic Evaluation Patient seen in post op: Yes Resp: within normal limits CV: within normal limits Mental: within normal limits Temp: within normal limits [id number]: within normal limits Nausea and Vomiting: within normal limits Pain: within normal limits
--- NOTE | 2017-03-25 13:12 | OB/GYN Progress Note ---
Assessment and Plan (1) Torsion of right ovary and ovarian pedicle Status: Acute Current Visit: Yes (2) Torsion of ovarian pedicle Status: Acute Assessment and plan: No blood flow on ultrasound, highly suspicious for unfortunate torsion of remaining tube and ovary. Taking to OR for diagnostic laparoscopy with RSO if recurrent torsion confirmed. Situation described to patient and partner in ER and understand and accept. 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 Will advance diet tomorrow along with oral pain medications. Will be transferring care back to Dr. Dickson in the morning. 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 States she still requires parenteral pain medication. Catheter has good output of clear urine, patient has not ambulated yet. Exam PRINTING PRESS MACHINE OPERATOR - Constitutional Vitals: Vital Signs Temp Pulse Pulse Resp BP BP Pulse Ox 03/25/17 12:00 97.8 F 96 H 20 111/71 03/25/17 10:00 82 18 124/78 100 03/25/17 08:00 96.9 F L 87 18 116/75 03/25/17 06:00 98 F 76 18 03/25/17 04:00 20 03/25/17 02:09 132/88 03/25/17 00:06 157/90 03/24/17 22:36 162/89 03/24/17 22:06 97.6 F 86 20 170/93 03/24/17 22:03 97.7 F 81 20 150/100 100 03/24/17 21:51 98 F 81 20 150/100 03/24/17 21:40 97.7 F 82 21 181/112 100 03/24/17 21:35 88 16 165/107 100 03/24/17 21:25 68 19 171/109 100 03/24/17 21:15 79 21 165/102 100 03/24/17 21:05 79 18 152/97 100 03/24/17 20:59 81 20 100 03/24/17 20:55 76 18 155/98 100 03/24/17 20:50 79 16 150/89 03/24/17 20:45 80 18 149/79 99 03/24/17 20:41 98.7 F 82 16 144/81 98 03/24/17 18:50 16 162/96 03/24/17 17:31 62 172/99 97 03/24/17 17:15 68 18 145/100 100 03/24/17 16:30 69 22 183/110 100 03/24/17 15:30 63 141/93 100 03/24/17 14:55 67 137/91 100 03/24/17 14:48 97.2 F L 77 16 195/115 03/24/17 14:29 97.2 F L 77 16 195/115 99 Pulse Ox 03/25/17 12:00 100 03/25/17 10:00 03/25/17 08:00 100 03/25/17 06:00 100 03/25/17 04:00 03/25/17 02:09 03/25/17 00:06 03/24/17 22:36 03/24/17 22:06 100 03/24/17 22:03 03/24/17 21:51 100 03/24/17 21:40 03/24/17 21:35 03/24/17 21:25 03/24/17 21:15 03/24/17 21:05 03/24/17 20:59 03/24/17 20:55 03/24/17 20:50 03/24/17 20:45 03/24/17 20:41 03/24/17 18:50 03/24/17 17:31 03/24/17 17:15 03/24/17 16:30 03/24/17 15:30 03/24/17 14:55 03/24/17 14:48 03/24/17 14:29 General appearance: other (Severe discomfort reported, moderate discomfort supported by exam.) - Head Head exam: Present: normal inspection - Neck Neck exam: Present: normal inspection - Respiratory Respiratory exam: Present: clear to auscultation bilaterally. Absent: accessory muscle use - Cardiovascular Cardiovascular exam: Present: regular rate and rhythm - GI/Abdominal GI/Abdominal exam: Present: distended (Mildly), guarding (Voluntary). Absent: tenderness, rebound - Back Exam Back exam: Present: normal inspection - Neurological Exam Neurological exam: Present: alert, oriented X3 - Psychiatric Psychiatric exam: Present: agitated. Absent: anxious, depressed - Skin Skin exam: Present: warm, dry Results - Labs CBC & BMP: 03/25/17 06:35 03/24/17 14:44
[2017-03-25] MEDS: KETOROLAC 30 MG/1 ML VIAL IV PRN (19:38)
[2017-03-26] MEDS: KETOROLAC 30 MG/1 ML VIAL IV PRN ×4 (00:57→19:40)
[2017-03-26] MEDS: METHYLDOPA 250 MG TABLET PO SCH ×5 (02:58→21:23)
[2017-03-26] MEDS: LACTATED RINGERS 1,000 ML IV SCH ×2 (06:01→07:50)
[2017-03-26] MEDS ORDERED: oxyCODONE/ACETAMINOPHEN 5-325 MG TABLET PO PRN (06:43)
[2017-03-26] MEDS: MAGNESIUM HYDROXIDE SUSP 30 ML UDCUP PO PRN (09:37)
[2017-03-26] MEDS: SIMETHICONE CHEW 80 MG TABLET PO PRN (09:37)
[2017-03-26] MEDS: MORPHINE PCA 30 MG/30 ML SYRINGE IV SCH (09:53)
[2017-03-26] MEDS ORDERED: ESTRADIOL 0.1 MG PATCH (1X WK) TRANSDERM SCH (10:00)
[2017-03-27 07:27] VITALS: BP 140/74
--- NOTE | 2017-03-27 07:35 | Discharge Summary ---
Hospital Course - Hospital Course Hospital Course: Pt admitted through ER with diagnosis of Right ovarian torsion. She underwent Diag. Laparoscopy, then Laparotomy with RSO without complications by Dr. Chatterjee on 03/24/17. Her postop course has been unremarkable except that she has done very well. She is ambulating without difficulty, tolerating a regular diet well. Pain is well-controlled with Perry. Discharge Plan - Discharge Data Disposition: Disch To Home/Self Care Condition at Discharge: Stable Discharge Diet: regular diet Activity: other (pelvic rest x 6 weeks) Hygiene: may shower Weight Bearing at Discharge: full weight bearing Driving: not until seen by doctor Contact your physician if you experience:: fever over 101, Difficulty voiding, Redness or swelling, Nausea/Vomiting, Shortness of breath, Bleeding, pain uncontrolled by pain medications - Discharge Medications New HYDROcodone/ACETAMIN 5-325 [Perry 5-325] 2 tablet PO Q4H PRN #30 tablet PRN Reason: Pain Severe (8-10) Estradiol 0.1MG Patch (1X Wk) [Climara 0.1 mg/24 hr Patch] 1 patch TRANSDERM Q7DAY #4 patch Continue Ibuprofen Tab [Motrin Tab] 800 mg PO Q8H PRN #30 tablet PRN Reason: Pain Moderate (4-7) No Action Methyldopa [Aldomet] 250 mg PO TID valACYclovir [Valtrex] 500 mg PO BID PRN PRN Reason: Rash Fluoxetine HCl [Prozac] 10 mg PO QAM oxyCODONE/ACETAMINOPHEN 5-325 [Percocet 5-325] 1 tablet PO Q4H PRN #30 tablet PRN Reason: Pain Severe (8-10) Ibuprofen Tab [Motrin Tab] 800 mg PO TID - Follow Up or Referral Follow Up: Kristen Dickson DO [Physician] - 1 Week - Forms/Instructions Exam - Constitutional Vitals: Period Temp Pulse Resp BP Sys/Jones Pulse Ox Last 24 Hr 97 F-100.0 F 94-108 18-20 126-152/70-93 98-100 General appearance: no acute distress, over weight - Head Head exam: Present: normal inspection, normocephalic - Eye Eye exam: Present: EOMI - Cardiovascular Cardiovascular exam: Present: regular rate and rhythm - GI/Abdominal GI/Abdominal exam: Present: soft (Incision intact without E/I/D) - Extremities Exam Extremities exam: Present: normal inspection - Neurological Exam Neurological exam: Present: alert, oriented X3 - Psychiatric Psychiatric exam: Present: normal affect, normal mood - Skin Skin exam: Present: normal color, warm DS: Provider Date of admission: 03/24/17 18:00 Primary care physician: . No PCP Attending physician on admission: Emanuel Chatterjee DO Discharging clinician: Kristen Dickson DO Expected date of discharge: 03/27/17
[2017-03-27] MEDS: METHYLDOPA 250 MG TABLET PO SCH (08:43)
[2017-03-27] MEDS: MAGNESIUM HYDROXIDE SUSP 30 ML UDCUP PO PRN (08:43)
[2017-03-27] MEDS: IBUPROFEN 800 MG TABLET PO PRN (08:43)
[2017-03-27] MEDS: SIMETHICONE CHEW 80 MG TABLET PO PRN (08:44)
== END 2017-03-27 09:40 | disposition home or self-care (01) ==
LOC: N.EDINP 14:22 → N.ED 14:22 → N.EDINP 19:00 → N.LD 22:36 → N.OB 03-25 19:14
PROVIDERS: ADMIT Obstetrics & Gynecology; ATTEND Obstetrics & Gynecology